=== PATIENT | female | born 1980 | race Caucasian/White ===

== ENCOUNTER 2022-11-13 08:02 | Outpatient (CLI) | payer BC, SELFPAY ==
--- NOTE | 2022-11-13 08:15 | CRLHL7_ITS ---
For Patients: As a result of the Century Cures Act, medical imaging exams and procedure reports are released immediately into your electronic medical record. You may view this report before your referring provider. If you have questions, please contact your health care provider. BILATERAL SCREENING MAMMOGRAM WITH COMPUTER-AIDED DETECTION AND TOMOSYNTHESIS TECHNIQUE: CC and MLO views were obtained. These mammographic images have been obtained using full-field digital technique. These mammographic images were interpreted with the benefit of computer-aided detection. Breast Tomosynthesis was used in this interpretation. COMPARISON FILM: 11/01/21, 10/26/20, 10/16/19. FINDINGS: The breasts are heterogeneously dense, which may obscure small masses IMPRESSION: There is no radiographic evidence for malignancy. ASSESSMENT: BI-RADS Category 1: Negative RECOMMENDATION: Routine screening mammogram in 1 year. A lay language report of this examination will be provided to the patient. KENNEY GRIFFIN MD Diagnostic/Nuclear Medicine Radiologist [email or web address] NAVARRO/[email or web address] be/Dictated by: Kenney Griffin MD @ 11/13/2022 9:06:00 AM (Electronically Signed)
== END 2022-11-13 08:03 | disposition home or self-care (01) ==
LOC: MAMMO 08:03
PROVIDERS: PCP Family Medicine; Visit Provider Family Medicine
DX: Z12.31 Encounter for screening mammogram for malignant neoplasm of breast (principal); R92.2 Inconclusive mammogram
CPT/HCPCS: 77063; 77067

== ENCOUNTER 2023-12-04 11:18 | Outpatient (CLI) | payer BC, SELFPAY ==
--- NOTE | 2023-12-04 11:30 | MM_ITS ---
Patient: ANNIE STRANGE Facility:?[facility] Patient ID:?[id number] Site Patient [id number]:?[id number]. Site :?[id number] Study:?XRay-Breast Bilateral 3D W/CAD-12/04/2023 11:45:26 AM Ordering Physician:Wanda Vargas Final Report: BILATERAL SCREENING MAMMOGRAM WITH COMPUTER-AIDED DETECTION AND TOMOSYNTHESIS TECHNIQUE: CC and MLO views were obtained. These mammographic images have been obtained using full-field digital technique. These mammographic images were interpreted with the benefit of computer-aided detection. Breast Tomosynthesis was used in this interpretation. COMPARISON FILM: 11/13/22, 11/01/21, 10/26/20. FINDINGS: The breasts are heterogeneously dense, which may obscure small masses. IMPRESSION: There is no radiographic evidence for malignancy. ASSESSMENT: BI-RADS Category 2: Benign RECOMMENDATION: Routine screening mammogram in 1 year. A lay language report of this examination will be provided to the patient. Adam Amaya M.D. Diagnostic Radiologist [email or web address] DSM/sp R& Transcribed: 6:09 p.m. SP/Dictated by: Adam Amaya MD @ 12/05/2023 10:14:00 AM Signed by:Clem Amaya MD @12/06/2023 5:42:51 AM (Electronic Signature)
== END 2023-12-04 11:19 | disposition home or self-care (01) ==
LOC: MAMMO 11:19
PROVIDERS: PCP Family Medicine; Visit Provider Family Medicine
DX: Z12.31 Encounter for screening mammogram for malignant neoplasm of breast (principal); R92.2 Inconclusive mammogram
CPT/HCPCS: 77063; 77067

== ENCOUNTER 2025-01-25 07:59 | Outpatient (CLI) | payer BC, SELFPAY ==
--- NOTE | 2025-01-25 09:26 | P.ANES_ITS ---
Anesthesia Charges Start Date/Time Anesthesia Start Date: 01/25/25 Anesthesia Start Time: 08:55 Stop Date/Time Anesthesia Stop Date: 01/25/25 Anesthesia Stop Time: 09:25 Coding CPT Codes CPT Codes: JAYLYN LWR INTST SCR COLSC - 05769 ([id number]) P2 - PATIENT W/MILD SYST DISEASE, QX - PHOTOGRAPHIC EDITOR SVC W/ MD MED DIRECTION, QK - PHARMACY CLINICAL SPECIALIST 2-4 CNCRNT ANES PROC
--- NOTE | 2025-01-25 09:26 | W.ANESCHARGE ---
Anesthesia Charges Start Date/Time Anesthesia Start Date: 01/25/25 Anesthesia Start Time: 08:55 Stop Date/Time Anesthesia Stop Date: 01/25/25 Anesthesia Stop Time: 09:25 Coding CPT Codes CPT Codes: JAYLYN LWR INTST SCR COLSC - 80323 ([id number]) P2 - PATIENT W/MILD SYST DISEASE, QX - COMMERCIAL ACCOUNT OFFICER SVC W/ MD MED DIRECTION, QK - AUDIT CONSULTANT 2-4 CNCRNT ANES PROC
--- NOTE | 2025-01-25 09:59 | P.ANES_ITS ---
Anesthesia Charges Start Date/Time Anesthesia Start Date: 01/25/25 Anesthesia Start Time: 08:55 Stop Date/Time Anesthesia Stop Date: 01/25/25 Anesthesia Stop Time: 09:25 Coding CPT Codes CPT Codes: ANES LWR INTST SCR COLSC - 70404 ([id number]) P2 - PATIENT W/MILD SYST DISEASE, QK - POCKET BUILDER 2-4 CNCRNT ANES PROC, QX - RADIATION ONCOLOGY THERAPIST SVC W/ MD MED DIRECTION
--- NOTE | 2025-01-25 09:59 | W.ANESCHARGE ---
Anesthesia Charges Start Date/Time Anesthesia Start Date: 01/25/25 Anesthesia Start Time: 08:55 Stop Date/Time Anesthesia Stop Date: 01/25/25 Anesthesia Stop Time: 09:25 Coding CPT Codes CPT Codes: ANES LWR INTST SCR COLSC - 66101 ([id number]) P2 - PATIENT W/MILD SYST DISEASE, QK - BRIDGE CONTRACTOR 2-4 CNCRNT ANES PROC, QX - DITCH RIDER SVC W/ MD MED DIRECTION
== END 2025-01-25 08:00 | disposition home or self-care (01) ==
LOC: OP CLINIC 08:01
PROVIDERS: PCP Family Medicine; Visit Provider Surgery
DX: Z12.11 Encounter for screening for malignant neoplasm of colon (principal); Z83.719 Family history of colon polyps, unspecified
CPT/HCPCS: 00812; 45378; J2704

== ENCOUNTER 2025-02-19 10:26 | Outpatient (CLI) | payer BC, SELFPAY ==
--- NOTE | 2025-02-19 10:45 | CRLHL7_ITS ---
For Patients: As a result of the Century Cures Act, medical imaging exams and procedure reports are released immediately into your electronic medical record. You may view this report before your referring provider. If you have questions, please contact your health care provider. INDICATION: BILATERAL SCREENING MAMMOGRAM, ASYMPTOMATIC 44 Y/O FEMALE COMPARISON: 12/04/2023, 11/13/2022, 11/01/2021 TECHNIQUE: Digital mammogram in CC and MLO projections including computer-aided detection (CAD) and tomosynthesis. BREAST COMPOSITION: The breasts are heterogeneously dense, which may obscure small masses. FINDINGS: No suspicious findings. ASSESSMENT: BI-RADS 2 Benign RECOMMENDATION: Annual screening mammogram. A lay language report of this examination will be provided to the patient. Dictated by: Adam Amaya MD @ 02/23/2025 12:02:24 (Electronically Signed)
== END 2025-02-19 10:27 | disposition home or self-care (01) ==
LOC: MAMMO 10:27
PROVIDERS: PCP Family Medicine; Visit Provider Family Medicine
DX: Z12.31 Encounter for screening mammogram for malignant neoplasm of breast (principal); R92.333 Mammographic heterogeneous density, bilateral breasts
CPT/HCPCS: 77063; 77067